=== PATIENT | male | born 1990 | race Caucasian/White ===

== ENCOUNTER 2017-02-26 13:04 | Emergency (ER) | payer OTHER ==
[~2017-02-26] VITALS: Ht 180.3 cm; Wt 89.2 kg
[2017-02-26 13:14] VITALS: BP 134/77
== END 2017-02-26 15:20 | disposition home or self-care (01) ==
LOC: ED 15:14
DX: S60.941A Unspecified superficial injury of left index finger, initial encounter (principal); Z20.9 Contact with and (suspected) exposure to unspecified communicable disease; W46.1XXA Contact with contaminated hypodermic needle, initial encounter; Y93.89 Activity, other specified; Y99.8 Other external cause status; Y92.89 Other specified places as the place of occurrence of the external cause
CPT/HCPCS: 36415; 86703; 86705; 86706; 86803; 87340; 87899; 99284; G0435